=== PATIENT | male | born 2000 | race Caucasian/White ===

== ENCOUNTER 2021-07-07 03:07 | Emergency (ER) | payer OTHER ==
[~2021-07-07] VITALS: Ht 177.8 cm; Wt 66.3 kg
[2021-07-07] MEDS ORDERED: BACI500O21 TOP (07:36)
[2021-07-07 08:16] VITALS: BP 132/70
== END 2021-07-07 08:27 | disposition home or self-care (01) ==
LOC: M ED 03:07 → EDBD 03:07 → M ED 08:27
DX: F10.129 Alcohol abuse with intoxication, unspecified (principal); Y90.1 Blood alcohol level of 20-39 mg/100 ml; S00.03XA Contusion of scalp, initial encounter; X58.XXXA Exposure to other specified factors, initial encounter; Y92.89 Other specified places as the place of occurrence of the external cause

== ENCOUNTER 2023-02-23 00:35 | Observation (INO) | payer OTHER ==
[2023-02-23] VITALS (7 sets, daily range): BP systolic 122–155; BP diastolic 72–96; TEMP 97–98.8; O2SAT 95–98
[~2023-02-23] VITALS: Ht 177.8 cm; Wt 74.3 kg
[~2023-02-23 00:35] MED LIST: BACI500O21 TOP
[2023-02-23] MEDS ORDERED: ANEXSIA, NORCO 7.5MG/325MG TABLET(HYDROCODONE/APAP) PO ONE (01:45)
[2023-02-23] MEDS ORDERED: ANEXSIA, NORCO 7.5MG/325MG TABLET(HYDROCODONE/APAP) PO PRN (03:00)
[2023-02-23] MEDS ORDERED: HOME MED LIST COMPLETE! XX SCH (03:00)
[2023-02-23] MEDS ORDERED: ACETAMINOPHEN TAB 650MG DOSE (2X325MG) PO PRN (03:00)
[2023-02-23 03:20] LABS: BASO # 0.1 10^3/uL (0.0-0.2); BASO % 0.3 % (0.0-1.0); HEMATOCRIT 45.3 % (42.0-52.0); HEMOGLOBIN 15.8 g/dl (13.5-17.5); LYMPH # 1.5 10^3/uL (1.5-5.0); LYMPH % 6.6 % (24.0-44.0); MEAN CORPUSCULAR HEMOGLOBIN 29.8 pg (27.0-33.0); MEAN CORPUSCULAR HGB CONC 34.9 g/dl (32.0-36.5); MEAN CORPUSCULAR VOLUME 85.5 fl (80.0-96.0); MONO # 0.9 10^3/uL (0.0-0.8); MONO % 3.7 % (2.0-8.0); NEUTROPHILS # 20.7 10^3/uL (1.5-8.5); PLATELET COUNT, AUTOMATED 301 10^3/uL (150-450); WHITE BLOOD COUNT 23.3 10^3/uL (4.0-10.0)
[2023-02-23 03:41] LABS: BLOOD UREA NITROGEN 24 MG/DL (9-23); CALCIUM LEVEL 8.9 MG/DL (8.5-10.1); CARBON DIOXIDE LEVEL 22 MMOL/L (20-31); CHLORIDE LEVEL 105 MMOL/L (98-107); GLOMERULAR FILTRATION RATE > 60.0 (>60); GLUCOSE, FASTING 118 MG/DL (60-100); POTASSIUM SERUM 4.2 MMOL/L (3.5-5.1); SODIUM LEVEL 140 MMOL/L (136-145)
[2023-02-23 03:55] LABS: INR 1.04; PROTHROMBIN TIME 13.3 SECONDS (12.5-14.5)
[2023-02-23 03:56] LABS: PARTIAL THROMBOPLASTIN TIME 23.3 SECONDS (24.8-34.2)
[2023-02-23] MEDS ORDERED: PERCOCET 5MG/325MG TAB PO PRN ×2 (08:10→12:15)
[2023-02-23] MEDS ORDERED: PERCOCET PO (10:17)
[2023-02-23] MEDS ORDERED: fentaNYL 100 MCG/2 ML INJECTION As Ordered ONE ×2 (10:17→11:03)
[2023-02-23] MEDS ORDERED: METOCLOPRAMIDE INJ 10MG/2ML VIAL As Ordered ONE (10:18)
[2023-02-23] MEDS ORDERED: ROCURONIUM BROMIDE 50MG/5ML VIAL As Ordered ONE (10:18)
[2023-02-23] MEDS ORDERED: ceFAZolin 2 GM/D5W 50 ML IV BAG As Ordered ONE (10:32)
[2023-02-23] MEDS ORDERED: LIDOCAINE 2% 100MG/5ML SDV (FOR ANES.) As Ordered ONE (11:03)
[2023-02-23] MEDS ORDERED: propofoL 200 MG/20 ML VIAL As Ordered ONE (11:03)
[2023-02-23] MEDS ORDERED: MIDAZOLAM INJ 2MG/2ML VIAL As Ordered ONE (11:03)
[2023-02-23] MEDS ORDERED: ONDANSETRON 4MG 2ML VIAL As Ordered ONE (11:03)
[2023-02-23] MEDS ORDERED: SUGAMMADEX SODIUM 500 MG/5 ML VIAL (BRIDION) As Ordered ONE (11:26)
[2023-02-23] MEDS ORDERED: ONDANSETRON 4MG 2ML VIAL IV PRN (12:15)
[2023-02-23] MEDS ORDERED: LR 1,000 ML IV SCH (12:15)
[2023-02-23] MEDS ORDERED: MORPHINE 2 MG/ML 1ML VIAL IV PRN (12:15)
[2023-02-23] MEDS: fentaNYL 100 MCG/2 ML INJECTION IV PRN ×2 (12:29→12:36)
[2023-02-23] MEDS: PERCOCET 5MG/325MG TAB PO PRN ×2 (15:38→22:32)
[2023-02-23] MEDS: ceFAZolin SOD 2 GM in IV 1 EA IV SCH (20:00)
[2023-02-24] MEDS ORDERED: KETOROLAC 30 MG/ML 1ML VIAL IV ONE
[2023-02-24] MEDS ORDERED: KETOROLAC 30 MG/ML 1ML VIAL IV PRN (01:05)
[2023-02-24 02:00] VITALS: BP 126/81; TEMP 97.5; O2SAT 96
[2023-02-24] MEDS: ceFAZolin SOD 2 GM in IV 1 EA IV SCH (03:03)
[2023-02-24 06:00] VITALS: BP 109/56; TEMP 97.2; O2SAT 97
[2023-02-24 07:56] LABS: BASO % 0.1 % (0.0-1.0); EOS % 0.1 % (0.0-3.0); HEMATOCRIT 40.8 % (42.0-52.0); LYMPH # 1.3 10^3/uL (1.5-5.0); LYMPH % 8.6 % (24.0-44.0); MEAN CORPUSCULAR HEMOGLOBIN 29.8 pg (27.0-33.0); MEAN CORPUSCULAR HGB CONC 34.3 g/dl (32.0-36.5); MEAN CORPUSCULAR VOLUME 86.8 fl (80.0-96.0); MONO # 1.4 10^3/uL (0.0-0.8); MONO % 9.2 % (2.0-8.0); NEUTROPHILS # 12.4 10^3/uL (1.5-8.5); NEUTROPHILS % 81.7 % (36.0-66.0); PLATELET COUNT, AUTOMATED 269 10^3/uL (150-450); WHITE BLOOD COUNT 15.2 10^3/uL (4.0-10.0)
[2023-02-24] MEDS: PERCOCET 5MG/325MG TAB PO PRN (08:53)
[2023-02-24] MEDS ORDERED: PERCOCET PO (09:59)
== END 2023-02-24 11:10 | disposition home or self-care (01) ==
LOC: M ED 00:35 → M ED INP 02:57 → INTOOBSV 02:57 → ENRESERV 03:55 → M MS5PR 04:28
PROVIDERS: ADMIT Internal Medicine; ATTEND Internal Medicine
DX: S52.272A Monteggia's fracture of left ulna, initial encounter for closed fracture (principal); F10.120 Alcohol abuse with intoxication, uncomplicated; S00.83XA Contusion of other part of head, initial encounter; S00.511A Abrasion of lip, initial encounter; Y04.0XXA Assault by unarmed brawl or fight, initial encounter; Y92.410 Unspecified street and highway as the place of occurrence of the external cause; F17.210 Nicotine dependence, cigarettes, uncomplicated
CPT/HCPCS: 24635; 36415; 70450; 73060; 73080; 73090; 73110; 76000; 80048; 82077; 85025; 85610; 85730; 87635; 96374; 96375; 96376; 99284; C1713; J0665; J0690; J1100; J1885; J2250; J2405; J2765; J3010

== ENCOUNTER → 2023-03-12 | Outpatient (CLI) | payer OTHER ==
[~2023-03-12] MED LIST changes: +PERCOCET PO
== END ==
LOC: M SOG 07:51
PROVIDERS: ATTEND Physician Assistant
DX: Z53.9 Procedure and treatment not carried out, unspecified reason (principal)

== ENCOUNTER → 2023-03-15 | Outpatient (CLI) | payer OTHER | LOC: M SOG 07:51 | PROVIDERS: ATTEND Orthopaedic Surgery | DX: Z47.89 Encounter for other orthopedic aftercare (principal) ==

== ENCOUNTER → 2023-04-05 | Outpatient (CLI) | payer OTHER | LOC: M SOG 07:48 | PROVIDERS: ATTEND Orthopaedic Surgery | DX: S52.272D Monteggia's fracture of left ulna, subsequent encounter for closed fracture with routine healing (principal) ==

== ENCOUNTER → 2023-05-17 | Outpatient (CLI) | payer OTHER | LOC: M SOG 07:53 | PROVIDERS: ATTEND Orthopaedic Surgery | DX: Z53.9 Procedure and treatment not carried out, unspecified reason (principal) ==

== ENCOUNTER → 2023-07-30 | Outpatient (CLI) | payer OTHER | LOC: M SOG 07:48 | PROVIDERS: ATTEND Orthopaedic Surgery | DX: S52.272D Monteggia's fracture of left ulna, subsequent encounter for closed fracture with routine healing (principal) ==

== ENCOUNTER → 2023-08-16 | Outpatient (CLI) | payer OTHER | LOC: M SOG 07:52 | PROVIDERS: ATTEND Orthopaedic Surgery | DX: S52.272D Monteggia's fracture of left ulna, subsequent encounter for closed fracture with routine healing (principal); Z53.8 Procedure and treatment not carried out for other reasons ==

== ENCOUNTER → 2023-08-19 | Outpatient (CLI) | payer OTHER | LOC: M SOG 09:26 | PROVIDERS: ATTEND Orthopaedic Surgery | DX: S52.272D Monteggia's fracture of left ulna, subsequent encounter for closed fracture with routine healing (principal) ==